=== PATIENT | male | born 1955 | race Caucasian/White ===

== ENCOUNTER 2021-08-24 20:50 | Emergency (ER) | payer BC ==
[~2021-08-24] VITALS: Ht 177.8 cm; Wt 86.2 kg
[2021-08-24] MEDS ORDERED: NITROGLYCERIN PACKET 1 GM PACKET ONE (22:34)
[2021-08-24] MEDS ORDERED: NITROGLYCERIN PACKET 1 GM PACKET TOP ONE (23:00)
--- NOTE | 2021-08-25 00:19 | NUR ---
Patient discharged to home in stable condition. Written and verbal after care instructions given. Patient verbalizes understanding of instruction.
[2021-08-25 00:20] VITALS: BP 112/77
== END 2021-08-25 00:20 | disposition home or self-care (01) ==
LOC: EDBD 20:53 → ER 20:53
DX: I73.9 Peripheral vascular disease, unspecified (principal); Z91.013 Allergy to seafood